=== PATIENT | male | born 1985 ===

== ENCOUNTER 2016-11-07 15:53 | Inpatient (IN) ==
[2016-11-07] MEDS ORDERED: VANCOMYCIN INJ 1,000 MG in SODIUM CHLORIDE 0.9% 250 ML IV STA (16:39)
[2016-11-07] MEDS ORDERED: SODIUM CHLORIDE 0.9% 2,000 ML IV STA (16:39)
--- NOTE | 2016-11-07 16:43 | Emergency Department Note ---
Arrival - Arrival Chief Complaint: Extremity Problem Stated Complaint: cellulitis to lower extremities ED Nursing Triage Note: Pt transferred from [facility] with c/o cellulitis to bilateral feet. Pt with wounds to bilateral feet. Pt complains of pain and swelling to both feet x 1-2 wks. Pt also has an old healing wound to buttocks. Pt is a paraplegic. Mode of Arrival: Stretcher Limitations: No Limitations Source: Patient Time Seen by Provider: 11/07/16 16:38 - History of Present Illness HPI Narrative: This 31-year-old Alfred paraplegic presents with a jumbled story of acquiring bilateral foot ulcers which he states was in just the last 1-2 weeks as a result of the way he crosses his legs. Needless to say he was evaluated at [facility] earlier where he was found to have extensive ulcers of the left foot and superficial ulcers of the right foot with uncontrolled diabetes. 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 The patient denies chills or fever and at [facility] did not demonstrate an elevated white blood cell count or evidence of osteo-myelitis on foot films. Currently he is in no acute distress with minimal sensation below the waist. Onset (ago): day(s) (Patient presents several days post onset of symptoms) Allergies/Adverse Reactions: Allergies Allergy/AdvReac Type Severity Reaction Status Date / Time acetaminophen [From Lortab] Allergy RASH Verified 05/17/16 22:24 Amoxicillin Allergy RASH Verified 05/17/16 22:24 codeine Allergy RASH Verified 05/17/16 22:24 hydrocodone [From Lortab] Allergy RASH Verified 05/17/16 22:24 ketorolac [From Toradol] Allergy RASH Verified 05/17/16 22:24 Penicillins Allergy ANAPHYLAXIS Verified 05/17/16 22:24 Home Medications: Home Medications Medication Instructions Recorded Confirmed Type HYDROcodone/ACETAMIN 7.5-325 1 tablet PO Q4H PRN #30 tablet 08/25/15 Rx [Curtis 7.5-325] Insulin NPH Hum/Reg Insulin Hm 10 units SUBCUT AC BREAKFAST 08/25/15 08/25/15 History [NovoLIN 70/30] Insulin Regular, Human [NovoLIN R] See Protocol SUBCUT ACHS 08/25/15 08/25/15 History Sulfameth/Trimeth 800-160 Tab 1 tablet PO BID #14 tablet 08/25/15 Rx [Bactrim DS Tab] Amitriptyline [Elavil] 10 mg PO Q6H #40 tablet 05/18/16 Rx Clindamycin Cap [Cleocin Cap] 300 mg PO Q8HR #30 capsule 05/18/16 Rx Promethazine Tab [Phenergan Tab] 25 mg PO Q6H #40 tablet 05/18/16 Rx Review of System - Review of System 12 point system: reviewed and no additional remarkable complaints except as stated - Review of System Constitutional: Present: as per HPI Skin: Present: as per HPI Medical,Surgical,& Family Hx - Medical History Cardio: History of: Hypertension Neurology: History of: Neurological Problems (paraplegia) No history of: Seizures Endocrine: History of: Diabetes Mellitus (IDDM), Dyslipidemia Musculoskeletal: History of: Musculoskeletal Problems (PARAPLEGIC) Other: History of: Miscellaneous Medical Problems (paraplegia, decubitus ulcers) - Family History Family History: Reports;: Family Diabetes - Social History Smoking Status: Current some day smoker Frequency of Alcohol Use: Occasionally Type of Drug Use: None Exam Physical Examination: GENERAL: Thin frail wasted Alfred male in no acute distress. HEENT: Normocephalic. No trauma. Moist mucous membranes. EOMI. PERRLA. ENT NML NECK: Supple. No adenopathy. CARDIAC: Regular. No murmurs. Heart rate 96 CHEST: Clear to auscultation. No respiratory distress. O2 sat 99% ABDOMEN: Soft. Nontender. Active bowel sounds. EXTREMITIES: No trauma. Extreme lower extremity muscle wasting. Normal ROM. No pedal edema. SKIN: No diaphoresis. No rash. Bilateral foot ulcers with the worse being a left heel ulcer with extensive soft tissue edema and periwound erythema NEURO: Alert. Oriented 3 with motor, sensory, vibratory intact from the waist up but absent below Vital Signs: Vital Signs Temperature 98.6 F 11/07/16 16:00 Pulse Rate 96 H 11/07/16 16:00 Respiratory Rate 15 11/07/16 16:00 Blood Pressure 131/83 11/07/16 16:00 O2 Sat by Pulse Oximetry 99 11/07/16 16:00 Course - Reevaluation(s) Reevaluation #1: Patient expectant of admission - Consultations Consultation #1: Discussed with hospitalist service will admit for further evaluation treatment. Results - Labs Labs: Labs per Gagandeep were unremarkable excepting for a glucose of 355 - Diagnostic Findings Procedure: X-ray: image reviewed by me, report reviewed by me (Per Gagandeep bilateral foot films reveal no evidence of osteo-) Disposition Clinical Impression: Bilateral diabetic foot ulcers, Paraplegia, Uncontrolled diabetes Case discussed with: patient Condition: Guarded Time of Disposition: 16:58
[2016-11-07] MEDS ORDERED: HYDROmorphone 2 MG/1 ML VIAL ONE (17:27)
[2016-11-07] MEDS ORDERED: VANCOMYCIN 1,000 MG VIAL ONE (18:53)
--- NOTE | 2016-11-07 19:43 | Hospitalist History & Physical ---
<Chery Howell Roxane - Last Filed: 11/07/16 19:34> Assessment and Plan - Time spent with patient Time spent with patient: Greater than 30 minutes (1) Bullae Status: Acute Assessment and plan: Admit to hospitalist services. Admit to ICU. Unroofed, clean, without signs of infection at this time. Wound cultures performed in ED; follow. Vancomycin started in ED; Continue at 1 gram IV daily. Current Visit: Yes (2) Hyperglycemia Status: Acute Assessment and plan: BG was 355 at [place]. Patient had a slight ketosis smell. Check ketones. Bolus of NS then continue infusion at 500 ml/hr x 4 hours, then 250 ml/hr x 4 hours, and then 125 ml/hr. Insulin infusion; titrate. Full liquid diet. Serial BMPs. Current Visit: Yes (3) IDDM (insulin dependent diabetes mellitus) Status: Acute Assessment and plan: As above. Current Visit: No (4) Hypertension Status: Acute Assessment and plan: Stable for now. Monitor. Current Visit: Yes (5) History of MRSA infection Status: Acute Assessment and plan: As above. Current Visit: Yes (6) DVT prophylaxis Status: Acute Assessment and plan: Lovenox 40 mg SQ daily. Current Visit: Yes History of Present Illness Chief complaint: Sores on feet History of present illness: Mr. Goyal is a 31 year old male with a past medical history significant for traumatic spinal cord injury, paraplegia, HTN, IDDM, chronic UTIs, chronic pain syndrome, and MRSA positive wounds who presented to the ED today as a transfer from [facility] with complaints of painful, open blisters on bilateral feet. Mr. oGyal reports that a large blister developed on his left foot about one and one half weeks ago and then spread to right foot. He reports that is last good meal was about 3 days ago, and he has been very thirsty. At [place], his WBC was 9.8, BG 355, negative acetone, and creatinine 1.5. Hospitalist services were consulted, and the patient will be admitted to ICU for further evaluation and treatment. Home Medications Medication Instructions Recorded Confirmed Type Insulin Aspart [NovoLOG] 5 unit SUBCUT TID W/MEALS 11/07/16 11/07/16 History Insulin Detemir [Levemir] 35 unit SUBCUT BEDTIME 11/07/16 11/07/16 History Allergies Allergy/AdvReac Type Severity Reaction Status Date / Time acetaminophen [From Lortab] Allergy RASH Verified 05/17/16 22:24 Amoxicillin Allergy RASH Verified 05/17/16 22:24 codeine Allergy RASH Verified 05/17/16 22:24 hydrocodone [From Lortab] Allergy RASH Verified 05/17/16 22:24 ketorolac [From Toradol] Allergy RASH Verified 05/17/16 22:24 Penicillins Allergy ANAPHYLAXIS Verified 05/17/16 22:24 Medical,Surgical,& Family Hx - Medical History Cardio: History of: Hypertension Psychological: History of: Depression Neurology: History of: Neurological Problems (Traumatic spinal cord injury; L1 burst fracture; paraplegia) No history of: Seizures Endocrine: History of: Diabetes Mellitus (IDDM), Dyslipidemia Musculoskeletal: History of: Musculoskeletal Problems (PARAPLEGIC) Other: History of: MRSA, Miscellaneous Medical Problems (paraplegia, decubitus ulcers) - Surgical History Abdominal Surgeries: Surgical HX of: Abdominal Surgery (colostomy) Reproductive Surgeries: Surgical HX of;: Genitourinary Surgery (urostomy) - Family History Family History: Reports;: Family Diabetes - Social History Smoking Status: Current some day smoker Have you smoked in the last 12 months: Yes Time spent discussing smoking cessation with patient: 3 to 10 minutes Frequency of Alcohol Use: Occasionally Type of Drug Use: None Marital Status: Single Lives With:: Parent Functional capacity: wheelchair bound - Constitutional Constitutional: Absent: chills, fever(s), malaise - EENT Eyes: Absent: blurry vision, diplopia, loss of vision Ears: Absent: decreased hearing, ear discharge, ear pain Nose, mouth and throat: Absent: headache(s), nasal congestion, sore throat - Cardiovascular Cardiovascular: Absent: chest pain at rest, diaphoresis, dyspnea, edema, orthopnea, palpitations - Respiratory Respiratory: Absent: cough, dyspnea - Gastrointestinal Gastrointestinal: Absent: abdominal pain, diarrhea, nausea, vomiting - Genitourinary Genitourinary: Present: urinary frequency. Absent: flank pain - Musculoskeletal Musculoskeletal: Present: as per HPI, other (t). Absent: arthralgias, joint swelling, muscle weakness, myalgias - Neurological Neurological: Absent: dizziness, numbness, paresthesias, syncope - Psychiatric Psychiatric: Absent: anxiety, depression - Endocrine Endocrine: Present: polydipsia, polyuria. Absent: cold intolerance - Hematologic/Lymphatic Hematologic/Lymphatic: Absent: easy bleeding, easy bruising Exam - Constitutional Vitals: Period Temp Pulse Resp BP Sys/Palencia Pulse Ox Last 24 Hr 98.6 F-98.6 F 88-96 15-18 122-138/56-88 98-100 Exam: Constitutional System: Afebrile. Awake, alert and oriented x 3. No distress. No tremulousness. Head: Normocephalic, atraumatic. Ears, Nose and Throat System: No pain or tenderness. No epistaxis or discharge Eyes System: Pupils equal, round, and reactive. Extraocular muscles intact. Neck: Supple, without adenopathy, No jugular venous distention. No thyromegaly, neck mass, or prior surgery apparent. Respiratory System: Chest clear to auscultation. Cardiovascular System: Heart with regular rate and rhythm. No murmur. GI System: Abdomen soft, nontender. Normo active bowel sounds present. Musculoskeletal System: Clean, unroofed bullae on left heel, left great toe, right heel, and right ankle. No redness, swelling or warmth noted at sites. Paraplegia. Neurological System: No discernable sensory deficit. No aphasia Psychiatric System: Conversation is rational Results - Labs Lab Results: I have reviewed the past 24 hour labs <Kalli Birmingham - Last Filed: 11/07/16 20:38> Assessment and Plan (1) DKA (diabetic ketoacidoses) Status: Acute Assessment and plan: DKA protocol with IVF and insulin drip Current Visit: Yes (2) Bullae Status: Acute Assessment and plan: multiple wounds, blood cx drawn, lactic acid ordered, sepsis order set used, no real evidence of active infection, vancomycin for now Current Visit: Yes (3) Hypertension Status: Acute Assessment and plan: blood pressure controlled without meds very dehydrated Current Visit: Yes (4) History of MRSA infection Status: Acute Current Visit: Yes History of Present Illness History of present illness: Mr. Goyal is a 31 year old male seen and examined. History and physical reviewed and edited. Patient smelled of ketones when I entered the room. Ketones were positive on checking. Wounds due to chronic picking and mutilation. Told patient I would have to wrap his hands up if he kept picking. Wounds dont look infected. He just keeps pulling the skin off his wounds. Has not taken insulin since yesterday. Began having nausea and vomiting beginning today. Medical,Surgical,& Family Hx - Family History Family History: Denies;: Family Cancer, Family Heart Disease, Family Stroke Exam - Constitutional Vitals: Period Temp Pulse Resp BP Sys/Palencia Pulse Ox Last 24 Hr 98.6 F-98.6 F 88-96 15-18 122-138/56-88 98-100 Results - Labs CBC & BMP: 11/07/16 19:54
[2016-11-07 20:01] LABS: Basophils % 0.4 % (0.0-0.8); Eosinophils # 0.2 10*3/uL (0.0-0.87); Hematocrit 29.9 VOL% (42.0-52.0); Hemoglobin 10.1 GM/DL (14.0-18.0); Immature Granulocytes % 0.2 %; Immature Granulocytes Absolute 0.02 #; Lymphocytes # 1.5 10*3/uL (1.4-4.0); Lymphocytes % 18.5 % (21.2-54.2); Mean Corpuscular HGB Conc 33.8 GM/DL (32-36); Mean Corpuscular Hemoglobin 31 PG (27-34); Mean Corpuscular Volume 91.2 FL (87-102); Mean Platelet Volume 10.7 FL (9.6-12.0); Monocytes # 0.6 10*3/uL (0.11-0.8); Monocytes % 7.2 % (1.7-12.7); Neutrophils # 5.7 10*3/uL (1.4-7.4); Neutrophils % 71.7 % (38.7-73.9); Platelet Count 258 T/CUMM (130-400); Red Blood Count 3.28 MC/CUMM (3.8-5.5); Red Cell Distribution Width 13.5 % (9.3-17.3)
[2016-11-07 20:38] LABS: Alanine Aminotransferase 13 U/L (16-61); Albumin 1.9 G/DL (3.4-5.0); Alkaline Phosphatase 130 U/L (45-117); Aspartate Amino Transferase 10 U/L (0-37); Bilirubin,Total < 0.39 MG/DL (0.2-1.0); Blood Urea Nitrogen 15 MG/DL (7-18); Calcium 7.6 MG/DL (8.5-10.1); Glucose 204 MG/DL (74-106); Osmolality,Calculated 283.5 MOS/KG (273-304); Potassium 3.5 MMOL/L (3.5-5.1); Sodium 139 MMOL/L (136-145)
[2016-11-07] MEDS ORDERED: MAGNESIUM SULF RIDER 4 GM in PREMIX 1 EACH IV PRN (22:56)
[2016-11-07] MEDS ORDERED: SODIUM CHLORIDE 0.9% 1,000 ML IV ONE (22:56)
[2016-11-07] MEDS ORDERED: SODIUM ACETATE IV PRN (22:56)
[2016-11-07] MEDS ORDERED: INSULIN REGULAR DRIP 100 ML IV SCH (22:56)
[2016-11-07] MEDS ORDERED: MAGNESIUM SULF RIDER 2 GM in PREMIX 1 EACH IV PRN (22:56)
[2016-11-07] MEDS ORDERED: SODIUM PHOSPHATE IV PRN (22:56)
[2016-11-07] MEDS ORDERED: POTASSIUM CHLORIDE RIDER 10 MEQ in PREMIX 1 EACH IV PRN (22:56)
[2016-11-07] MEDS ORDERED: INSULIN REGULAR 100 UNIT/ML IV ONE (22:56)
[2016-11-07] MEDS ORDERED: SODIUM CHLORIDE 0.9% 1,000 ML IV SCH (22:56)
[2016-11-07] MEDS ORDERED: DEXTROSE 50% 25 GM/50 ML SYRINGE IV PRN ×2 (22:56)
[2016-11-07] MEDS ORDERED: SODIUM CHLORIDE 0.9% IV PRN (22:56)
[2016-11-07] MEDS ORDERED: STERILE WATER IV PRN (22:56)
[2016-11-07 23:11] LABS: Calcium 8.1 MG/DL (8.5-10.1); Osmolality,Calculated 284.4 MOS/KG (273-304); Potassium 3.8 MMOL/L (3.5-5.1)
[2016-11-07 23:13] LABS: ABG Base Excess -7.2 MMOL/L (-2.5-2.5); ABG HCO3 18.6 MMOL/L (20-26); ABG Oxygen Saturation 95.9 % (95-100); ABG PCO2 44.7 MM HG (35-48); ABG PH 7.256 (7.35-7.45); ABG PO2 90.1 MM HG (80-95); ABG TCO2 18.2 MMOL/L (23-27); Allen Test Positive; Pt O2 Delivery Device Room Air
[2016-11-07 23:20] LABS: Lactic Acid 0.8 MMOL/L (0.4-2.0)
[2016-11-07 23:23] LABS: Magnesium 2.1 MG/DL (1.8-2.4); Phosphorous 3.1 MG/DL (2.5-4.9)
[2016-11-08] MEDS ORDERED: SODIUM CHLORIDE 0.9% 1,000 ML IV SCH (00:31)
[2016-11-08 01:17] LABS: Apearance,Urine CLOUDY (Clear); Bacteria,Urine Many /HPF (Few); Bilirubin,Urine Negative (Negative); Blood, Urine Negative (Negative); Glucose,Urine (UA) >=500 mg/dL (Negative); Hyaline Casts,Urine 8 /LPF (0-3); Ketones,Urine 20 mg/dL (Negative); Mucus,Urine Occasional /LPF (Occasional); Nitrite,Urine Negative (Negative); Protein,Urine >=500 MG/DL; RBC,Urine 17 /HPF (0-4); Urine Color Yellow (Yellow); Urine Specific Gravity 1.011 (1.001-1.035); Urine Urobilinogen < 2.0 EU/DL (0.2-1.0); WBC,Urine 40 /HPF (0-6)
[2016-11-08] MEDS ORDERED: DEXTROSE 5% NACL 0.9% 1,000 ML IV SCH (01:30)
[2016-11-08] MEDS ORDERED: INSULIN REGULAR 100 UNIT/ML SUBCUT SCH (02:00)
[2016-11-08] MEDS: INSULIN REGULAR 100 UNIT/ML SUBCUT SCH ×4 (03:48→20:47)
[2016-11-08 04:16] LABS: Basophils % 0.2 % (0.0-0.8); Eosinophils # 0.2 10*3/uL (0.0-0.87); Eosinophils % 1.7 % (0.00-10.9); Hematocrit 29.8 VOL% (42.0-52.0); Hemoglobin 9.8 GM/DL (14.0-18.0); Immature Granulocytes % 0.3 %; Immature Granulocytes Absolute 0.03 #; Lymphocytes # 0.9 10*3/uL (1.4-4.0); Lymphocytes % 9.9 % (21.2-54.2); Mean Corpuscular HGB Conc 32.9 GM/DL (32-36); Mean Corpuscular Hemoglobin 31 PG (27-34); Mean Corpuscular Volume 92.8 FL (87-102); Mean Platelet Volume 10.7 FL (9.6-12.0); Monocytes # 0.6 10*3/uL (0.11-0.8); Monocytes % 7.1 % (1.7-12.7); Neutrophils % 80.8 % (38.7-73.9); Platelet Count 238 T/CUMM (130-400); Red Blood Count 3.21 MC/CUMM (3.8-5.5); Red Cell Distribution Width 13.5 % (9.3-17.3); White Blood Count 8.7 T/CUMM (4-12)
[2016-11-08 04:31] LABS: Phosphorous 3.3 MG/DL (2.5-4.9)
[2016-11-08 04:41] LABS: Calcium 7.5 MG/DL (8.5-10.1); Potassium 3.4 MMOL/L (3.5-5.1)
[2016-11-08 04:47] LABS: Lactic Acid 0.5 MMOL/L (0.4-2.0)
[2016-11-08 04:50] LABS: Risk Ratio 2.04; Thyroid Stimulating Hormone 1.17 uIU/ml (0.358-3.74); VLDL CHOLESTEROL 18.6 MG/DL
[2016-11-08] MEDS ORDERED: POTASSIUM CHLORIDE RIDER 20 MEQ in PREMIX 1 EACH IV PRN (05:01)
[2016-11-08] MEDS: VANCOMYCIN INJ 750 MG in SODIUM CHLORIDE 0.9% 250 ML IV SCH ×2 (06:37→19:29)
[2016-11-08] MEDS ORDERED: POTASSIUM CHLORIDE 20 MEQ TABLET PO ONE (08:30)
[2016-11-08] MEDS ORDERED: GLUCAGON 1 MG VIAL IM PRN (08:31)
[2016-11-08] MEDS ORDERED: DEXTROSE 50% 25 GM/50 ML SYRINGE IV PRN (08:31)
[2016-11-08] MEDS ORDERED: INSULIN GLARGINE 100 UNIT/ML SUBCUT SCH ×2 (09:00→16:45)
[2016-11-08] MEDS: PANTOPRAZOLE 40 MG TABLET PO SCH (09:24)
[2016-11-08] MEDS: ENOXAPARIN 40 MG/0.4 ML SYRINGE SUBCUT SCH (09:24)
[2016-11-08] MEDS: ERTAPENEM 1,000 MG in SODIUM CHLORIDE 0.9% 100 ML IV SCH (09:40)
--- NOTE | 2016-11-08 10:32 | XRay Report ---
Single view the chest. Indication: Shortness of breath. Comparison: February 17, 2015. The heart is normal in size. The right lung is clear. There is a mild left infrahilar to right. No pneumothorax or pleural effusion. Esther rods are seen within the lumbar spine. Calcifications in the right upper quadrant, could be within the pancreas. Impression: Left infrahilar interstitial infiltrate. PROCEDURE INTERPRETED AT [facility] DEPARTMENT OF RADIOLOGY Final Report Signed by: Dr. Silvia Elam
--- NOTE | 2016-11-08 11:18 | Hospitalist Progress Note ---
Assessment and Plan (1) DKA (diabetic ketoacidoses) Status: Acute Assessment and plan: Patient did not meet the qualifications for DKA as there was no gap acidosis when his labs were reviewed. Positive ketones were most likely due to starvation ketosis. Patient was given Lantus today and a diabetic diet. He will moved to the floor as he is stable. Hemoglobin A1c of 10 Current Visit: Yes (2) Bullae Status: Acute Assessment and plan: multiple wounds, blood cultures are still pending. Continue vancomycin and Invanz. His white count remains normal and he remains afebrile. His wound cultures growing multiple different organisms but I think this is colonization versus infection. Will ask Dr. Pool for consult on Wednesday. Current Visit: Yes (3) Hypertension Status: Acute Assessment and plan: Controlled Current Visit: Yes (4) UTI (urinary tract infection) Status: Acute Assessment and plan: She is a paraplegic and self caths and therefore has multiple infections as a result. His last UTI grew out Klebsiella with ESBL and I have started him on Invanz. Whether this is colonization or active infection is difficult now. Current Visit: Yes Hospitalist: Subjective Interval history: Patient's blood sugars did not tolerate the insulin drip well. Patient's beta hydroxybutyrate was elevated consistent with DKA but he never had a gap acidosis. Ketones may be secondary to starvation. Patient looks very cachectic and malnourished. He said he had had his insulin for about a day. He reports nausea and vomiting. Patient will be given Lantus and really feels like eating today. Most of his problems are due to his excessive picking and pulling skin off of his legs. No active infections are appreciated on his legs. But he does have a UTI. Patient is asking for narcotics as he says he has pain in his legs. Patient is stable and does not require ICU care. Exam - Constitutional Vitals: Period Temp Pulse Resp BP Sys/Palencia Pulse Ox Last 24 Hr 97.1 F-98.6 F 71-96 10-27 111-160/56-113 98-100 Exam: Heart Rate-[RRR] Lungs-[CTAB] GI-[+bs soft, NT] Ext-muscle wasting Skin multiple wounds wrapped Neuro [para plegic psych [normal mood and flat affect] General [no acute distress] Results - Labs CBC & BMP: 11/08/16 04:00 11/08/16 04:00 Lab Results: I have reviewed the past 24 hour labs Labs: Blood cultures 2 are pending, urine culture is pending but his UA is clearly positive, wound culture growing gram-positive cocci and gram-negative rods - Diagnostic Findings Procedure: Chest x-ray: report reviewed by me (Questionable left hilar infiltrate.)
[2016-11-08] MEDS ORDERED: SODIUM CHLORIDE 0.45% 1,000 ML IV SCH (12:31)
[2016-11-08] MEDS: oxyCODONE IR 5 MG TABLET PO PRN ×2 (13:19→19:28)
[2016-11-09] MEDS: INSULIN REGULAR 100 UNIT/ML SUBCUT SCH ×4 (09:20→21:10)
[2016-11-09] MEDS: ENOXAPARIN 40 MG/0.4 ML SYRINGE SUBCUT SCH (09:20)
[2016-11-09] MEDS: INSULIN GLARGINE 100 UNIT/ML SUBCUT SCH ×2 (09:20→13:04)
[2016-11-09] MEDS: ERTAPENEM 1,000 MG in SODIUM CHLORIDE 0.9% 100 ML IV SCH (09:20)
[2016-11-09] MEDS: PANTOPRAZOLE 40 MG TABLET PO SCH (09:21)
[2016-11-09] MEDS: oxyCODONE IR 5 MG TABLET PO PRN ×3 (09:27→20:23)
[2016-11-09] MEDS: VANCOMYCIN INJ 750 MG in SODIUM CHLORIDE 0.9% 250 ML IV SCH ×2 (10:24→21:11)
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
[2016-11-09] MEDS: SODIUM HYPOCHLORITE 0.25% IRRIG 473 ML BOTTLE TOP SCH (14:24)
[2016-11-09] MEDS: GENTAMICIN 0.1% OINT 15 GM TUBE TOP SCH (14:24)
[2016-11-09] MEDS: COLLAGENASE OINT 30 GM TUBE TOP SCH (14:26)
--- NOTE | 2016-11-09 17:57 | Hospitalist Progress Note ---
Hospitalist: Subjective Interval history: Patient is awake and comfortable Exam - Constitutional Vitals: Period Temp Pulse Resp BP Sys/Palencia Pulse Ox Last 24 Hr 97.1 F-98.9 F 72-96 18-22 122-138/71-80 95-98 Exam: General: No Acute Distress HEENT: Normocephalic, atraumatic, Extra ocular movements intact Neck: Supple, No JVD Chest: Clear to auscultation B/L CV: S1 + S2 audible without murmur, gallop or rub Abd: soft, NT, Non-distended, BS + Ext: No edema Skin: No purpura, bruising or rash Rheumatologic: No Joint deformities Neurologic: Paraplegia Results - Labs CBC & BMP: 11/08/16 04:00 11/08/16 04:00 - Impressions Assessment and Plan: (1) Bilateral feet blisters Status: Acute Assessment and plan: Continue local wound care Current Visit: Yes (2) Decubitus ulcer of right foot Status: Acute Assessment and plan: Patient recently completed treatment of osteo-myelitis over a month ago, continue local wound care for lateral malleolus wound Current Visit: Yes (3) Urinary colonization resulting in positive urine culture Status: Acute Assessment and plan: The patient has 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
[2016-11-09] MEDS: ONDANSETRON 4 MG/2 ML VIAL IV PRN (20:23)
[2016-11-10] MEDS: ONDANSETRON 4 MG/2 ML VIAL IV PRN ×2 (05:01→12:18)
[2016-11-10] MEDS: oxyCODONE IR 5 MG TABLET PO PRN ×4 (05:01→21:39)
[2016-11-10] MEDS ORDERED: ERTAPENEM 1,000 MG in SODIUM CHLORIDE 0.9% 50 ML IV SCH (09:00)
[2016-11-10] MEDS: ENOXAPARIN 40 MG/0.4 ML SYRINGE SUBCUT SCH (09:24)
[2016-11-10] MEDS: PANTOPRAZOLE 40 MG TABLET PO SCH (09:24)
[2016-11-10] MEDS: INSULIN GLARGINE 100 UNIT/ML SUBCUT SCH (09:29)
[2016-11-10] MEDS: VANCOMYCIN INJ 750 MG in SODIUM CHLORIDE 0.9% 250 ML IV SCH (09:29)
[2016-11-10] MEDS: INSULIN REGULAR 100 UNIT/ML SUBCUT SCH ×3 (09:29→16:02)
--- NOTE | 2016-11-10 11:02 | Physician Query Form ---
CLICK EDIT DOCUMENT TO SELECT QUERY ANSWER --> OK --> SIGN Colleen Valle RN Clinical Digital Color Press Operator W) [phone] (f) [phone] [email or web address] PROVIDERS: Make your selection(s) from the choices in EACH section by typing an "x" and enter comments in the comment section. Please use your independent medical judgment in providing your response. This request does not imply that any particular answer is desired or expected. CLINICAL INDICATORS: (Providers should not edit this section) The wound care nurse documented " stage 3 pressure ulcer left heel. stage 3 pressure ulcer left lateral ankle. stage 3 pressure ulcer rt heel. stage 3 pressure ulcer rt foot. stage 3 pressure ulcer left ischium. stage 3 pressure ulcer rt ischium". Please clarify if you agree with the wound care nurse documentation. Based on the above, could you clarify the appropriate diagnosis, if significant , that supports the above abnormalities and additional evaluation, monitoring, and/or treatment rendered: (x ) I agree with the wound care nurse documentation of pressure ulcers ( ) I do not agree with the wound care nurse documentation of pressure uclers ( ) Other, please specify: ( ) Clinically unable to determine COMMENTS: PLEASE ALSO DOCUMENT RESPONSE IN PROGRESS NOTES AND/OR DISCHARGE SUMMARY Use of terms such as suspected, likely, or probable (associated with a specific diagnosis that is being evaluated, monitored, or treated as if it exists) are acceptable and can be restated in the discharge summary if not ruled out. MTDD
--- NOTE | 2016-11-10 11:06 | Physician Query Form ---
CLICK EDIT DOCUMENT TO SELECT QUERY ANSWER --> OK --> SIGN Colleen Valle RN Clinical Track Inspecting Supervisor W) [phone] (f) [phone] [email or web address] PROVIDERS: Make your selection(s) from the choices in EACH section by typing an "x" and enter comments in the comment section. Please use your independent medical judgment in providing your response. This request does not imply that any particular answer is desired or expected. CLINICAL INDICATORS: (Providers should not edit this section) Height: 5ft 4in Weight: 94 lbs Checkering Machine Adjuster BMI: 16.3 Nutritional supplements: add Glucerna to all trays Make Up Arranger notes:Moderately Malnourished (Suspected) Other clinical notes: Thin frail wasted [place] male Based on the above, which following choice most accurately represents the patient's nutritional status? ( ) Malnutrition ( ) mild ( ) moderate ( ) severe (x ) Protein calorie malnutrition ( ) mild ( ) moderate (x ) severe ( ) Emaciation due to malnutrition ( ) Nutritional marasmus ( ) Cachexia ( ) Underweight ( ) No nutritional deficiency ( ) Other, please specify: ( ) Clinically unable to determine Mild Malnutrition (BMI < 18.5, % Normal Body Weight 85-95%) Moderate Malnutrition (BMI < 17, % Normal Body Weight 75-85%) Severe Malnutrition (BMI < 16, % Normal Body Weight < 75%) Source: Vonnie COMMENTS: PLEASE ALSO DOCUMENT RESPONSE IN PROGRESS NOTES AND/OR DISCHARGE SUMMARY Use of terms such as suspected, likely, or probable (associated with a specific diagnosis that is being evaluated, monitored, or treated as if it exists) are acceptable and can be restated in the discharge summary if not ruled out. MTDD
[2016-11-10] MEDS: SODIUM HYPOCHLORITE 0.25% IRRIG 473 ML BOTTLE TOP SCH (13:53)
[2016-11-10] MEDS: COLLAGENASE OINT 30 GM TUBE TOP SCH (13:53)
[2016-11-10] MEDS: GENTAMICIN 0.1% OINT 15 GM TUBE TOP SCH (13:53)
--- NOTE | 2016-11-10 15:21 | Infectious Disease Progress ---
Assessment and Plan (1) Blister (nonthermal), left foot, initial encounter Status: Acute Assessment and plan: There does not appear to be acute infection of the multiple blisters along the left foot although there is some sloughy tissue posteriorly. These open wounds from the blisters are colonized as opposed infected. There is no cellulitis. Recommendations: Discontinue antibiotics and continue local wound care I will sign off now. Call again as needed. Current Visit: Yes (2) Blister (nonthermal), right foot, initial encounter Status: Acute Assessment and plan: The blisters are not infected. Local wound care is all I recommend. Current Visit: Yes (3) Decubitus ulcer of right foot Status: Acute Assessment and plan: Patient completed therapy for osteomyelitis of this foot over a month ago. There is still a wound there over the lateral malleolus which has not healed and we should continue with local wound care. Current Visit: Yes (4) Positive urine culture Status: Acute Assessment and plan: The patient has a urostomy and will always have positive urine cultures. He does not have any systemic features of urinary tract infection and I advise against antibiotic therapy for the positive urine culture. Current Visit: Yes Infectious Disease - PN: Subj Interval history: Patient reports no complaints. He has not had any fever. Infectious Disease Exam (PN) - Constitutional Vitals: Temp Pulse Resp BP Pulse Ox 98.4 F 72 20 138/70 98 11/10/16 11:48 11/10/16 11:48 11/10/16 11:48 11/10/16 11:48 11/10/16 11:48 Exam: General appearance: no acute distress - Eye Eye exam: Present: EOMI. no icterus Pupils: Present: KIRSTEN - ENT ENT exam: no oropharyhgeal exudates - GI/Abdominal GI/Abdominal exam: Colostomy and urostomy present, clear urine from urostomy, soft, non-tender - Extremities Exam Extremities exam: no edema, wasted, feet bandaged - Skin Skin exam: no rash Results - Labs CBC & BMP: 11/08/16 04:00 11/08/16 04:00 Lab Results: I have reviewed the past 24 hour labs
--- NOTE | 2016-11-10 17:31 | Hospitalist Progress Note ---
Hospitalist: Subjective Interval history: Patient is awake and comfortable. Exam - Constitutional Vitals: Period Temp Pulse Resp BP Sys/Palencia Pulse Ox Last 24 Hr 97.6 F-98.8 F 70-82 18-21 125-139/70-88 98-98 Exam: General: No Acute Distress HEENT: Normocephalic, atraumatic, Extra ocular movements intact Neck: Supple, No JVD Chest: Clear to auscultation B/L CV: S1 + S2 audible without murmur, gallop or rub Abd: soft, NT, Non-distended, BS + Ext: No edema Skin: No purpura, bruising or rash Rheumatologic: No Joint deformities Neurologic: Paraplegia Results - Labs CBC & BMP: 11/08/16 04:00 11/08/16 04:00 - Impressions Assessment and Plan: (1) Bilateral feet blisters Status: Acute Assessment and plan: Continue local wound care Current Visit: Yes (2) Decubitus ulcer of right foot Status: Acute Assessment and plan: Patient recently completed treatment of osteo-myelitis over a month ago, continue local wound care for lateral malleolus wound Current Visit: Yes (3) Urinary colonization resulting in positive urine culture Status: Acute Assessment and plan: The patient has 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
[2016-11-11] MEDS: INSULIN REGULAR 100 UNIT/ML SUBCUT SCH ×5 (01:20→21:44)
[2016-11-11] MEDS: oxyCODONE IR 5 MG TABLET PO PRN ×4 (02:58→19:21)
[2016-11-11] MEDS: ONDANSETRON 4 MG/2 ML VIAL IV PRN ×3 (02:58→19:20)
[2016-11-11] MEDS ORDERED: VANCOMYCIN INJ 750 MG in SODIUM CHLORIDE 0.9% 250 ML IV SCH (04:00)
[2016-11-11] MEDS: ENOXAPARIN 40 MG/0.4 ML SYRINGE SUBCUT SCH (09:35)
[2016-11-11] MEDS: PANTOPRAZOLE 40 MG TABLET PO SCH (09:36)
[2016-11-11] MEDS: INSULIN GLARGINE 100 UNIT/ML SUBCUT SCH ×2 (09:43→12:49)
[2016-11-11] MEDS: GENTAMICIN 0.1% OINT 15 GM TUBE TOP SCH (09:43)
--- NOTE | 2016-11-11 17:41 | Hospitalist Progress Note ---
Hospitalist: Subjective Interval history: Patient is awake and comfortable. Exam - Constitutional Vitals: Period Temp Pulse Resp BP Sys/Palencia Pulse Ox Last 24 Hr 97.2 F-98.6 F 75-81 18-20 113-145/62-87 98-100 Exam: General: No Acute Distress HEENT: Normocephalic, atraumatic, Extra ocular movements intact Neck: Supple, No JVD Chest: Clear to auscultation B/L CV: S1 + S2 audible without murmur, gallop or rub Abd: soft, NT, Non-distended, BS + Ext: No edema Skin: No purpura, bruising or rash Rheumatologic: No Joint deformities Neurologic: Paraplegia Results - Labs CBC & BMP: 11/08/16 04:00 11/08/16 04:00 - Impressions Assessment and Plan: (1) Bilateral feet blisters Status: Acute Assessment and plan: Continue local wound care Current Visit: Yes (2) Decubitus ulcer of right foot Status: Acute Assessment and plan: Patient recently completed treatment of osteo-myelitis over a month ago, continue local wound care for lateral malleolus wound Current Visit: Yes (3) Urinary colonization resulting in positive urine culture Status: Acute Assessment and plan: The patient has 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
[2016-11-11] MEDS: COLLAGENASE OINT 30 GM TUBE TOP SCH (17:52)
[2016-11-11] MEDS: SODIUM HYPOCHLORITE 0.25% IRRIG 473 ML BOTTLE TOP SCH (17:52)
[2016-11-12] MEDS: oxyCODONE IR 5 MG TABLET PO PRN ×2 (01:00→10:17)
[2016-11-12] MEDS: INSULIN REGULAR 100 UNIT/ML SUBCUT SCH ×2 (10:16→13:53)
[2016-11-12] MEDS: PANTOPRAZOLE 40 MG TABLET PO SCH (10:17)
[2016-11-12] MEDS: ENOXAPARIN 40 MG/0.4 ML SYRINGE SUBCUT SCH (10:17)
[2016-11-12] MEDS: ONDANSETRON 4 MG/2 ML VIAL IV PRN (10:18)
[2016-11-12] MEDS: INSULIN GLARGINE 100 UNIT/ML SUBCUT SCH (10:27)
--- NOTE | 2016-11-12 11:26 | Discharge Summary ---
<Cate العراقي - Last Filed: 11/12/16 12:10> Hospital Course - Hospital Course Hospital Course: Mr Goyal w/PMHx of paraplegic, HTN, DM, dyslipidemia presented 11/07/16 to the ED from [facility] for further evaluation of bilateral foot ulcers. LABS stable,and ABG pH 7.256, HCO3 18.6, ABG base excess -7.2. Hospital Services consulted and admitted to ICU, Wound cultures obtained in ED, evaluate for ketosis, vancomycin daily, consult ID for assistance with wound infections. Patient moved to floor, was noted no ketosis and no infection in boluses of foot. ID consulted and plan: multiple boluses left foot with sloughy tissue,no infection, no cellulitis. recommended and started local wound care, no systemic antibiotics at this time. The patient had positive urine culture due to chronic urostomy, this is chronic colonization and not acute UTI, no indication for antibiotic treatment. Today 11/12/16 Patient is stable, will discharge patient home with home health with wound care to bilateral lower legs. He will need to continue current home medications. He will need to follow up with primary care physician. Discharge Plan - Discharge Medications New Collagenase Oint [Santyl Oint] 1 applic TOP DAILY applic Sodium Hypochlorite 0.25% Irr [Dakins 1/2 Strength 0.25% Soln] 1 applic TOP DAILY applic Continue Insulin Detemir [Levemir] 35 unit SUBCUT BEDTIME Insulin Aspart [NovoLOG] 5 unit SUBCUT TID W/MEALS - Follow Up or Referral - Forms/Instructions Exam - Constitutional Vitals: Period Temp Pulse Resp BP Sys/Palencia Pulse Ox Last 24 Hr 97.6 F-98.7 F 70-80 18-20 102-135/65-87 97-100 Discharge Results Procedures and tests throughout hospitalization: Pending Orders 11/07/16 17:23 Blood Culture Stat Labs on day of discharge: Labs from last 24 hours 11/12/16 11/12/16 11/12/16 11:02 07:41 05:41 POC Glucose 223 H 194 H 108 H 11/12/16 11/11/16 11/11/16 03:28 19:42 15:22 POC Glucose 40 L* 178 H 189 H Preliminary micro results at discharge 11/07/16 17:23 Blood Culture - Preliminary Blood No growth at 3 days 11/07/16 17:23 Blood Culture - Preliminary Blood No growth at 3 days DS: Provider Date of admission: 11/07/16 18:57 Primary care physician: Jessica Jackson MD Attending physician on admission: Carissa Oneill MD Consults: 11/07/16 20:33 Consult to Wound Care - [place] [CONS] Routine Reason for Wound Care: Wound Care Management 11/07/16 22:56 Consult to [facility], Educator [CONS] Routine Reason for Bander And Cellophaner Helper Machine: Diabetes Education 11/08/16 11:19 Consult to Physician [CONS] Routine Comment: antibiotics Consulting Provider: Lucy Varela 11/10/16 16:43 Consult to Case Mgmt/Social Srvs [CONS] Routine Reason for Case Mgmt/Social Srvs: Home Health Discharge Planning Consult Comment: help with wound care 11/11/16 09:04 Consult to Wound Care - [place] [CONS] Routine Reason for Wound Care: Wound Care Management Consult Comment: urostomy bag size and type Discharging clinician: Cate العراقي NP <Ramone Albright - Last Filed: 11/12/16 14:00> Hospital Course - Time spent with patient Time with patient DS: Less than 30 minutes Diagnosis - Discharge Diagnosis (1) UTI (urinary tract infection) Status: Resolved Discharge Plan - Discharge Data Condition at Discharge: Stable Discharge Diet: advance to your usual diet Activity: resume usual activities as tolerated Hygiene: no restrictions Exam - Constitutional Exam: General: No Acute Distress HEENT: Normocephalic, atraumatic, Extra ocular movements intact Neck: Supple, No JVD Chest: Clear to auscultation B/L CV: S1 + S2 audible without murmur, gallop or rub Abd: soft, NT, + Colostomy & Urostomy, BS + Ext: No edema Skin: No purpura, bruising or rash Rheumatologic: No Joint deformities
[2016-11-12 13:29] VITALS: BP 102/65
== END 2016-11-12 15:45 | disposition home health service (06) | DRG 592 ==
LOC: EDBD → EDUNIT# → N.ED 15:53 → SUATTDRO 18:57 → N.EDINP 18:57 → N.ICU 20:40 → N.2E 11-08 14:14
PROVIDERS: ADMIT Family Medicine; ATTEND Hospitalist